=== PATIENT | female | born 1950 | race Caucasian/White ===

== ENCOUNTER 2023-08-06 10:25 | Outpatient (CLI) | payer MEDICARE ==
[2023-08-06] MEDS ORDERED: Magnevist 469MG/ML 20 ML VIAL ONE (12:50)
== END 2023-08-06 10:26 | disposition home or self-care (01) ==
LOC: CSHMRI 10:25
PROVIDERS: ATTEND Otolaryngology Plastic Surgery within the Head & Neck
DX: H90.42 Sensorineural hearing loss, unilateral, left ear, with unrestricted hearing on the contralateral side (principal)
CPT/HCPCS: 70553; 82565; A9579